=== PATIENT | female | born 1950 | race Caucasian/White ===

== ENCOUNTER → 2023-09-15 14:41 | Outpatient (REF) | payer MEDICARE, OTHER, SELFPAY | LOC: RAD 14:41 | PROVIDERS: ATTENDING PHYSICIAN Surgery; FAMILY PHYSICIAN Family Medicine | DX: Z87.442 Personal history of urinary calculi (principal) | CPT/HCPCS: 74018 ==

== ENCOUNTER → 2023-10-22 11:40 | Outpatient (REF) | payer MEDICARE, OTHER, SELFPAY | LOC: HWRAD 11:40 | PROVIDERS: ATTENDING PHYSICIAN Internal Medicine Rheumatology; FAMILY PHYSICIAN Family Medicine | DX: M85.80 Other specified disorders of bone density and structure, unspecified site (principal); Z78.0 Asymptomatic menopausal state | CPT/HCPCS: 77080 ==

== ENCOUNTER → 2024-05-08 12:09 | Outpatient (REF) | payer MEDICARE, OTHER, SELFPAY | LOC: RAD 12:09 | PROVIDERS: ATTENDING PHYSICIAN Registered Nurse Ambulatory Care; OTHER PHYSICIAN Internal Medicine Rheumatology | DX: R29.898 Other symptoms and signs involving the musculoskeletal system (principal); M54.50 Low back pain, unspecified; R19.8 Other specified symptoms and signs involving the digestive system and abdomen; R39.89 Other symptoms and signs involving the genitourinary system; M25.461 Effusion, right knee; M25.462 Effusion, left knee; Z87.442 Personal history of urinary calculi | CPT/HCPCS: 72040; 73564; 74018 ==

== ENCOUNTER → 2024-05-09 14:32 | Outpatient (REF) | payer MEDICARE, OTHER, SELFPAY ==
[2024-05-09 15:04] LABS: % Basophils 0.8 % (0-2); % Eosinophils 2.7 % (0-6); % Immature Granulocytes 0.6 % (0-0.5); % Lymphocytes 16.2 % (20.5-51.1); % Monocytes 7.8 % (1.7-9.3); % Neutrophils 71.9 % (42.2-75.2); Absolute Basophils 0.1 10^3/uL (0-0.2); Absolute Eosinophils 0.3 10^3/uL (0-0.7); Absolute Immature Granulocytes 0.1 10^3/uL (0-0.05); Hematocrit 36.7 % (37.0-47.0); Hemoglobin 12.6 g/dL (12.0-16.0); Mean Corp Hgb Conc. 34.3 g/dL (33.0-37.0); Mean Corpuscular Hgb 31.3 pg (27.0-31.0); Mean Corpuscular Volume 91.1 fL (81.0-99.0); Mean Platelet Volume 9.6 fL (7.4-10.4); Nucleated Red Blood Cells % 0 %; Platelet Count 328 10^3/uL (130-400); Red Blood Cell Count 4.03 10^6/uL (4.20-5.40); Red Cell Dist. Width 12.8 % (11.5-14.5); White Blood Cell Count 12.5 10^3/uL (4.8-10.8)
[2024-05-09 16:22] LABS: ALT (SGPT) 19 U/L (0-35); AST (SGOT) 28 U/L (14-36); Albumin 3.8 g/dl (3.5-5.0); Alkaline Phosphatase 93 U/L (38-126); Blood Urea Nitrogen 21 mg/dl (7-17); Calcium 9.4 mg/dl (8.4-10.2); Carbon Dioxide 29 mmol/L (22-30); Chloride 97 mmol/L (98-107); Creatine Phosphokinase 35 U/L (30-135); Glucose 125 mg/dl (70-99); Potassium 4.2 mmol/L (3.5-5.1); Sodium 138 mmol/L (135-145); Total Bilirubin 0.3 mg/dl (0.2-1.3); Total Protein 6.9 g/dl (6.3-8.2); eGFR > 60.00
[2024-05-09 16:25] LABS: Erythrocyte Sed Rate 53 mm/hour (0-20)
[2024-05-12 08:54] LABS: ANA, IgG Reflex to HEp-2 None Detected (None Detected)
== END ==
LOC: REG 14:32
PROVIDERS: ATTENDING PHYSICIAN Registered Nurse Ambulatory Care
DX: R29.898 Other symptoms and signs involving the musculoskeletal system (principal)
CPT/HCPCS: 36415; 80053; 82550; 85025; 85652; 86038

== ENCOUNTER → 2024-06-23 13:49 | Outpatient (REF) | payer MEDICARE, OTHER, SELFPAY | LOC: HWWDC 13:49 | PROVIDERS: ATTENDING PHYSICIAN Nurse Practitioner | DX: Z12.31 Encounter for screening mammogram for malignant neoplasm of breast (principal) | CPT/HCPCS: 77063; 77067 ==

== ENCOUNTER → 2024-07-12 12:01 | Outpatient (REF) | payer MEDICARE, OTHER, SELFPAY | LOC: PAVMRI 12:01 | PROVIDERS: ATTENDING PHYSICIAN Internal Medicine Gastroenterology; FAMILY PHYSICIAN Nurse Practitioner | DX: Z91.89 Other specified personal risk factors, not elsewhere classified (principal) | CPT/HCPCS: 74183; A9575 ==

== ENCOUNTER 2024-11-27 21:26 | Emergency (ER) | payer MEDICARE, OTHER, SELFPAY ==
[2024-11-27 21:28] VITALS: BMI 19.4
[2024-11-27 21:29] VITALS: BP 152/72
[2024-11-27 22:00] VITALS: BP 160/73
[2024-11-27 22:26] LABS: Blood Urea Nitrogen 11 mg/dl (7-17); Calcium 9.5 mg/dl (8.4-10.2); Carbon Dioxide 27 mmol/L (22-30); Chloride 107 mmol/L (98-107); Estimated Creatinine Clearance 65 ml/min; Glucose 105 mg/dl (70-99); Sodium 140 mmol/L (135-145); eGFR > 60.00
[2024-11-27 22:27] LABS: % Basophils 1.3 % (0-2); % Eosinophils 0.7 % (0-6); % Immature Granulocytes 0.6 % (0-0.5); % Lymphocytes 19.7 % (20.5-51.1); % Monocytes 8.4 % (1.7-9.3); % Neutrophils 69.3 % (42.2-75.2); Absolute Basophils 0.1 10^3/uL (0-0.2); Absolute Eosinophils 0.1 10^3/uL (0-0.7); Absolute Immature Granulocytes 0.1 10^3/uL (0-0.05); Absolute Lymphocytes 1.9 10^3/uL (1.2-3.4); Absolute Monocytes 0.8 10^3/uL (0.1-0.6); Absolute Neutrophils 6.6 10^3/uL (1.4-6.5); Hematocrit 26.4 % (37.0-47.0); Hemoglobin 8.9 g/dL (12.0-16.0); Mean Corp Hgb Conc. 33.7 g/dL (33.0-37.0); Mean Corpuscular Hgb 31.1 pg (27.0-31.0); Mean Corpuscular Volume 92.3 fL (81.0-99.0); Mean Platelet Volume 9.1 fL (7.4-10.4); Nucleated Red Blood Cells % 0 %; Platelet Count 603 10^3/uL (130-400); Red Blood Cell Count 2.86 10^6/uL (4.20-5.40); Red Cell Dist. Width 13.4 % (11.5-14.5); White Blood Cell Count 9.6 10^3/uL (4.8-10.8)
[2024-11-27] MEDS: NSS 1000 IV (22:41)
[2024-11-27] MEDS: TORADOL 15 MG IV (22:42)
[2024-11-27 23:02] LABS: ALT (SGPT) 14 U/L (0-35); AST (SGOT) 27 U/L (14-36); Albumin 3.8 g/dl (3.5-5.0); Alkaline Phosphatase 68 U/L (38-126); Direct Bilirubin 0.1 mg/dl (0.0-0.4); Magnesium 1.9 mg/dl (1.6-2.3); Potassium 3.8 mmol/L (3.5-5.1); Total Bilirubin 0.4 mg/dl (0.2-1.3); Total Protein 6.8 g/dl (6.3-8.2)
--- NOTE | 2024-11-27 23:02 | ED.GENMED ---
History of Present Illness
General
Chief Complaint: Abdominal Symptoms
Source: patient
Exam Limitations: none
Time Seen by Provider: 11/27/24 21:31
Nursing documentation reviewed up to this point in time: agreed with
History of Present Illness
History of Present Illness:
This is a 74-year-old woman who has history of hypertension, hyperlipidemia, Sjogren syndrome, osteoarthritis, lumbar stenosis as well as history of diverticulitis for which she underwent sigmoid colon resection October 12 with emergent ileostomy
formation due to complication of sigmoid colon wrapped around ureter. Surgery was performed at [facility] and she remained in the hospital for 8 days for IV antibiotics. Had done well with ileostomy, did not require further antibiotics and she
underwent ileostomy reversal November 15.
Overall has been doing well but admits to some constipation since postop., She discontinued tramadol 2 days ago due to constipation. She did note an isolated fever 2 days ago which promptly resolved with a dose of Tylenol and has not recurred.
Appetite has been fair, she has been limiting her diet to soft foods, clear liquids.
This afternoon however shortly after lunch she developed lower abdominal crampy pain and began to initially pass several soft stools that has since transitioned to multiple episodes of watery nonbloody diarrhea. She called her surgeon and was
recommended to take Imodium for which she took 2 tablets at 5 PM. She continued with multiple episodes of diarrhea the last of which 8:30 PM. She admits to moderate fatigue, generalized weakness but denies dizziness nor lightheadedness, denies
chest pain or palpitations, denies the sense that she is going to pass out.
She has had no dysuria no urgency no hematuria, no back pain or flank pain, no cough no shortness of breath.
Crampy abdominal discomfort has improved but she continues with intermittent twinges of pain at her ileostomy site.
As per surgeons instructions she has been packing her stoma site with plain packing. She has had mild drainage from stoma site but denies bleeding nor exudate nor fecal drainage from stoma.
Patient takes no medicines on a daily basis. She had been maintained on meloxicam but this was discontinued 5 days prior to surgery. Currently taking Tylenol for as needed pain.
Past History
Past History
ED Past Medical History: Cancer (Breast cancer), HTN, Hypercholesterolemia and Other (Kidney stones, diverticulosis/diverticulitis, Sjogren syndrome, osteoarthritis, lumbar stenosis)
ED Past Surgical History: Bowel resection (Sigmoid colon resection October 2024 with ileostomy formation. Ileostomy reversal November 15, 2024), Gynecological (Left mastectomy 1990), Orthopedic (Lumbar laminectomy, left hip replacement, spinal fusion) and
Urological (Kidney stone removal 2018)
Social History
Tobacco: Non-smoker
Alcohol: None
Drug: None
Personal: Single
Living: alone
Employment: Retired (Occupational therapist, retired 2023)
Family History
Family History: Cancer (Paternal grandmother, mother as well as sister all had pancreatic cancer.) and Other (Family history of celiac disease.)
Phy Exam
Physical Exam
Physical Exam:
GENERAL: 74-year-old woman appears her stated age, thin build. She is bright and alert, easily communicative and overall in no acute distress. Afebrile. Mild systolic hypertension otherwise vital signs within normal limits.
EYE: pupils equal. anicteric
NECK: Supple, nontender, no meningismus, no significant adenopathy.
ENT: posterior pharynx is clear, oral mucosa is minimally dry. No rhinorrhea.
CARDIAC: Regular rate and rhythm. no murmur.
LUNGS: Clear breath sounds bilaterally, no acute respiratory distress, no wheezes/rales/rhonchi
ABDOMEN: Lower midline vertical surgical incision is well-healed, dry and intact with few dry/scabbed areas along the incision site. Right lower quadrant stoma cavity approximately 2.5 cm in depth with granulation tissue at the base. There is
scant pale yellow drainage on packing which has been removed by myself and lightly repacked with half-inch plain packing strip. There is no stomal site erythema nor swelling. The abdomen is soft, nondistended, with mild generalized tenderness to
the lower abdomen, no r/g, no cvat. normoactive BS.
NEUROLOGICAL: Alert and oriented x3, no focal neuro deficits. Motor strength is 5/5 bilaterally. Gross sensation is intact.
SKIN: Warm and dry, normal color, skin intact. No rash.
MUSCULOSKELETAL: No C/C/E. peripheral pulses are full and equal b/l. No palpable tenderness.
PSYCH: Normal and appropriate interaction.
Course
Orders/Labs/Results
Orders:
Orders
11/27/24 21:56
Basic Metabolic Panel Urgent
Complete Blood Count/With Diff Urgent
11/27/24 22:34
0.9% Sodium Chloride 1000 ml [Nss] 1,000 ml IV BOLUS
Ketorolac [Toradol] 15 mg IV NOW STA
11/27/24 22:35
Add On- LAB Urgent
Tests Added?: magnesium
STOOL [C difficile Antigen & Toxins] Urgent
ZAHRA Source: Feces/Stool
Specimen Description:
Stool Culture Urgent
ZAHRA Source: Feces/Stool
Specimen Description:
11/27/24 22:36
CT Abd/pelvis W Iv Cont Urgent
Comment:
Reason For Exam: acute diarrhea,abd pain. iliostomy reversal 11/15
11/27/24 22:39
Hep Liver [[id number]] Urgent
Magnesium Urgent
Comment: ADD ON
Potassium Urgent
Abnormal Lab Results
11/27/24
21:56
RBC 2.86 L 10^6/uL
(4.20-5.40)
Hgb 8.9 L g/dL
(12.0-16.0)
Hct 26.4 L %
(37.0-47.0)
MCH 31.1 H pg
(27.0-31.0)
Plt Count 603 H 10^3/uL
(130-400)
Abs Immat Gran (auto) 0.1 H 10^3/uL
(0-0.05)
Absolute Neuts (auto) 6.6 H 10^3/uL
(1.4-6.5)
Absolute Monos (auto) 0.8 H 10^3/uL
(0.1-0.6)
Immature Gran % 0.6 H %
(0-0.5)
Lymphocytes % 19.7 L %
(20.5-51.1)
Creatinine 0.4 L mg/dL
(0.6-1.0)
Glucose 105 H mg/dl
(70-99)
11/27/24 21:56
11/27/24 22:39
Vital Signs
Initial and Last Documented VS:
Initial Vital Signs
Temp Pulse Resp BP Pulse Ox
98.8 F 80 14 152/72 100
11/27/24 21:29 11/27/24 21:29 11/27/24 21:29 11/27/24 21:29 11/27/24 21:29
Last Documented Vital Signs
Temp Pulse Resp BP Pulse Ox
98.8 F 81 11 155/71 100
11/27/24 21:29 11/27/24 23:51 11/27/24 23:51 11/27/24 23:51 11/27/24 21:29
MDM/Problems Addressed
Differential Diagnosis Includes:
Concern for gastroenteritis, colitis, recurrent diverticulitis, anastomotic leak/abscess formation, other consideration is resolution of postop ileus.
Concern for dehydration, electrolyte abnormality, acute kidney injury.
Will initiate IV fluids, will give a small IV dose of Toradol.
Labs are pending.
Will plan for CT abdomen pelvis with IV contrast.
Chronic conditions affecting care: Previous abdomnial surgery
*Radiology
Radiology exam reviewed: radiology read reviewed
*Pulse Oximetry
Patient hypoxic: no
*Critical Care Note
Total Time (30-74mins, 75-104mins- exclusive of procedures): Not Applicable
Update Note
Update Note:
00:15
Labs are reassuring with normal white blood cell count. Mild anemia. Chemistries are unremarkable.
CAT scan shows liquid stool throughout the colon consistent with enteritis. There is some inflammatory fat stranding right anterior abnormal wall at site of prior ileostomy but no evidence of abscess. Clinically abdominal wall ileostomy site is
well in appearance without erythema nor induration. Mild local tenderness but no significant tenderness.
Patient has ambulated to and from the bathroom to void without difficulty. She has had no return of diarrhea.
I have spoken with colorectal surgery fellow on-call from [facility]. Case discussed.
He agrees that at this point no indication for antibiotics and patient can be discharged to home.
Okay to resume her daily meloxicam.
Recommend continuing Imodium as needed for diarrhea.
Continue bland diet.
Prompt follow-up with colorectal surgeon this week for recheck.
ED Attending Note
-
Portions of this chart may have been created with voice recognition software.� Occasional wrong word or��sound alike� substitutions may have occurred due to the inherent limitations of voice recognition software.
Discharge Plan
Departure
Patient Disposition: Home (Routine Discharge)
Date of Disposition: 11/28/24
Time of Disposition: 00:22
Patient with high blood pressure during this ER visit?: No
Condition: Good
Discharge Problem:
Acute gastroenteritis
Instructions: Diarrhea in teens and adults, [place] Diet
Prescriptions:
No Action
alprazolam 0.5 MG tablet
0.25 mg PO Q8H PRN (Reason: anxiety)
tramadol 50 mg Tablet
50 mg PO Q6H PRN (Reason: pain)
Referrals:
Travis Harman CRNP [Family Provider] -
Activity Restrictions/Additional Instructions:
Touch base with your colorectal surgeon this week for recheck.
You may resume your meloxicam.
Continue Imodium 1 to 2 tablets 4 times daily as needed for diarrhea.
Continue bland diet.
Interventions
Interventions:
*Risk Screen - Suicide Last Done: 11/27/24 21:29
*General Assessment Last Done: 11/27/24 21:29
*Neglect/Abuse Screening Last Done: 11/27/24 21:29
*ED- Fall Risk Assessment Last Done: 11/27/24 22:03
CN-Meswmt-Efttqiuntp Assessment Last Done: 11/27/24 22:03
Discharge Date and Time
Print Language: SETSWANA
[2024-11-27 23:51] VITALS: BP 155/71
--- NOTE | 2024-11-28 00:20 | EDRN ---
Per Dr Oneil, pt does not have anyone to pick her up until 0700 so she will stay in the ED until that time. Dr Oneil disconnected pt's IV and monitoring equipment. Pt eating crackers and has been up to use the bathroom - no diarrhea.
== END 2024-11-28 07:03 | disposition home or self-care (01) ==
LOC: EMR 21:26
PROVIDERS: Emergency Medicine; EMERGENCY PHYSICIAN Emergency Medicine; FAMILY PHYSICIAN Nurse Practitioner
DX: R10.30 Lower abdominal pain, unspecified (principal); R53.1 Weakness; R19.7 Diarrhea, unspecified; K52.9 Noninfective gastroenteritis and colitis, unspecified; D64.9 Anemia, unspecified; I10 Essential (primary) hypertension; E78.00 Pure hypercholesterolemia, unspecified; M35.00 Sjogren syndrome, unspecified; M19.90 Unspecified osteoarthritis, unspecified site; M48.061 Spinal stenosis, lumbar region without neurogenic claudication; K57.92 Diverticulitis of intestine, part unspecified, without perforation or abscess without bleeding; F84.0 Autistic disorder; G62.9 Polyneuropathy, unspecified; F90.9 Attention-deficit hyperactivity disorder, unspecified type; F32.A Depression, unspecified; Z96.642 Presence of left artificial hip joint; Z98.0 Intestinal bypass and anastomosis status; Z98.1 Arthrodesis status; Z85.828 Personal history of other malignant neoplasm of skin; Z85.3 Personal history of malignant neoplasm of breast; Z87.442 Personal history of urinary calculi; Z90.12 Acquired absence of left breast and nipple; Z88.1 Allergy status to other antibiotic agents; Z88.5 Allergy status to narcotic agent; Z88.8 Allergy status to other drugs, medicaments and biological substances; Z91.018 Allergy to other foods; Z91.048 Other nonmedicinal substance allergy status
CPT/HCPCS: 99284; 96361 ×2; 96374; 74177; 80048; 80076; 83735; 84132; 85025; Q9967